=== PATIENT | male | born 2000 | race African-American/Black ===

== ENCOUNTER 2024-05-01 17:36 | Inpatient (IN) | payer OTHER, BC ==
[2024-05-01] MEDS ORDERED: MAGNESIUM HYDROXIDE 2,400 MG/30 ML CUP PO PRN (18:10)
[2024-05-01] MEDS ORDERED: ACETAMINOPHEN TAB 325 MG TAB PO PRN (18:10)
[2024-05-01] MEDS ORDERED: HALOPERIDOL LACTATE 5 MG/ML 1 ML VIAL IM PRN (18:10)
[2024-05-01] MEDS ORDERED: IBUPROFEN 600 MG TAB PO PRN (18:10)
[2024-05-01] MEDS ORDERED: LORazepam 2 MG/ML INJ IM PRN (18:10)
[2024-05-01] MEDS ORDERED: MAG HYDROX/AL HYDROX/SIMETH 355 ML BOTTLE PO PRN (18:10)
[2024-05-01] MEDS: LORazepam 1 MG TAB PO PRN (21:02)
[2024-05-01] MEDS: haloperidoL 5 MG TAB PO PRN (21:03)
[2024-05-01] MEDS: NICOTINE 21MG/24HR PATCH TRANSDERM SCH (21:38)
[2024-05-02 07:01] LABS: Basophils % (A) 0 %; Eosinophils # (A) 0.2 k/uL (0-0.7); Eosinophils % (A) 3 %; HCT 38.3 % (39.0-53.0); HGB 12.5 gm/dL (13.0-17.5); Lymphocytes # (A) 1.8 k/uL (1.0-4.8); Lymphocytes % (A) 30 %; MCH 25.3 pg (25.0-35.0); MCHC 32.5 g/dL (31.0-37.0); MCV 77.8 fL (80.0-100.0); Mean Platelet Volume 7.2; Monocytes # (A) 0.3 k/uL (0-1.0); Monocytes % (A) 5 %; Neutrophils # (A) 3.6 k/uL (1.3-7.7); Neutrophils % (A) 61 %; Platelet Count 228 k/uL (150-450); RBC 4.92 m/uL (4.30-5.90)
[2024-05-02 08:59] LABS: ALT 23 U/L (4-49); AST 42 U/L (17-59); African American GFR (CKD) >90 (>60 ml/min/1.73 sqM); Albumin 3.8 g/dL (3.5-5.0); Alkaline Phosphatase 84 U/L (38-126); Anion Gap 8 mmol/L; Bilirubin, Delta 0.1 mg/dL (0.0-0.2); Bilirubin,Unconjugated 0.3 mg/dL (0.0-1.1); Blood Urea Nitrogen 15 mg/dL (9-20); Calcium 9.5 mg/dL (8.4-10.2); Carbon Dioxide 24 mmol/L (22-30); Chloride 107 mmol/L (98-107); Glucose 100 mg/dL (74-99); Non-African American GFR(CKD) >90 (>60 ml/min/1.73 sqM); Potassium 3.8 mmol/L (3.5-5.1); Sodium 139 mmol/L (137-145); Total Bilirubin 0.4 mg/dL (0.2-1.3); Total Protein 6.4 g/dL (6.3-8.2)
[2024-05-02] MEDS ORDERED: NICOTINE 21MG/24HR PATCH TRANSDERM SCH (09:00)
--- NOTE | 2024-05-02 13:05 | P.HP ---
Psychiatric H&P - . H&P Date: 05/02/24 History & Physical: Allergies Allergy/AdvReac Type Severity Reaction Status Date / Time cheese Allergy Unknown Verified 05/01/24 18:09 Fish Containing Products Allergy Unknown Verified 05/01/24 18:09 Fish Penicillins Allergy Unknown Verified 05/01/24 18:09 Vital Signs Temp 98.5 F 05/01/24 21:03 Pulse 80 05/01/24 21:03 Resp 18 05/01/24 21:03 BP 134/81 05/01/24 21:03 Pulse Ox FiO2 Intake & Output 05/01/24 05/02/24 05/02/24 18:59 06:59 18:59 Weight 75 kg 71.441 kg Laboratory Last Values WBC 6.0 k/uL (3.8-10.6) 05/02/24 06:41 RBC 4.92 m/uL (4.30-5.90) 05/02/24 06:41 Hgb 12.5 gm/dL (13.0-17.5) L 05/02/24 06:41 Hct 38.3 % (39.0-53.0) L 05/02/24 06:41 MCV 77.8 fL (80.0-100.0) L 05/02/24 06:41 MCH 25.3 pg (25.0-35.0) 05/02/24 06:41 MCHC 32.5 g/dL (31.0-37.0) 05/02/24 06:41 RDW 14.0 % (11.5-15.5) 05/02/24 06:41 Plt Count 228 k/uL (150-450) 05/02/24 06:41 MPV 7.2 05/02/24 06:41 Neutrophils % 61 % 05/02/24 06:41 Lymphocytes % 30 % 05/02/24 06:41 Monocytes % 5 % 05/02/24 06:41 Eosinophils % 3 % 05/02/24 06:41 Basophils % 0 % 05/02/24 06:41 Neutrophils # 3.6 k/uL (1.3-7.7) 05/02/24 06:41 Lymphocytes # 1.8 k/uL (1.0-4.8) 05/02/24 06:41 Monocytes # 0.3 k/uL (0-1.0) 05/02/24 06:41 Eosinophils # 0.2 k/uL (0-0.7) 05/02/24 06:41 Basophils # 0.0 k/uL (0-0.2) 05/02/24 06:41 Sodium 139 mmol/L (137-145) 05/02/24 06:41 Potassium 3.8 mmol/L (3.5-5.1) 05/02/24 06:41 Chloride 107 mmol/L (98-107) 05/02/24 06:41 Carbon Dioxide 24 mmol/L (22-30) 05/02/24 06:41 Anion Gap 8 mmol/L 05/02/24 06:41 BUN 15 mg/dL (9-20) 05/02/24 06:41 Creatinine 1.06 mg/dL (0.66-1.25) 05/02/24 06:41 Est GFR (CKD-EPI)AfAm >90 (>60 ml/min/1.73 sqM) 05/02/24 06:41 Est GFR (CKD-EPI)NonAf >90 (>60 ml/min/1.73 sqM) 05/02/24 06:41 Glucose 100 mg/dL (74-99) H 05/02/24 06:[address] Glu mg/dL 105 mg/dL 05/02/24 06:41 Hemoglobin A1c 5.3 % (<=6.0) 05/02/24 06:41 Calcium 9.5 mg/dL (8.4-10.2) 05/02/24 06:41 Total Bilirubin 0.4 mg/dL (0.2-1.3) 05/02/24 06:41 Conjugated Bilirubin 0.0 mg/dL (0.0-0.3) 05/02/24 06:41 Unconjugated Bilirubin 0.3 mg/dL (0.0-1.1) 05/02/24 06:41 Delta Bilirubin 0.1 mg/dL (0.0-0.2) 05/02/24 06:41 AST 42 U/L (17-59) 05/02/24 06:41 ALT 23 U/L (4-49) 05/02/24 06:41 Alkaline Phosphatase 84 U/L (38-126) 05/02/24 06:41 Total Protein 6.4 g/dL (6.3-8.2) 05/02/24 06:41 Albumin 3.8 g/dL (3.5-5.0) 05/02/24 06:41 TSH 2.000 mIU/L (0.465-4.680) 05/02/24 06:41 05/02/24 12:54 IDENTIFYING DATA: Patient is a 23-year-old -Maced[place] male, unemployed and homeless CHIEF COMPLAINT: Psychosis HPI: 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 EPS note states, "Patient packet received from [facility] for transfer from [facility]. Patient has valid petition and clinical certificate stating patient has been responding to internal stimuli, extreme paranoia, and talking in word salad and incoherent speech. Patient reportedly has not been taking psychiatric medications, wandering and walking outside, and talking to "people that don't exist"." Patient seen and evaluated on the unit and was agreeable with speaking to field underwriter in office. Patient was disorganized and displaying pressured speech, responding internally at times. He states he has been eating plastic at home due to ongoing battles regarding entering the third dimension. He expresses numerous thoughts about and feels as though his mission is to eradicate all evil so that we all can experience the multi verse. He states due to him eating plastic, his brother kicked him out of his house and that he went to a friend's house and smoked from a vape pen that he feels was laced which caused him to start "freaking out" and so his mother was contacted who then called the police. Patient appears to be a proponent of cannabis, stating that it helps him fight cancer cells he asks field underwriter if there is something similar to cannabis that could be started however this was discouraged. Patient notably started speaking to God while talking to field underwriter. Patient denied any racing thoughts or sleep difficulties however petition did note patient has not been sleeping. He does express a history of time where he was not sleeping and felt very energetic with racing thoughts and states he has a history of bipolar disorder. Patient denies any suicidal or homicidal ideations intent or plan. At this time patient denies any visual hallucinations. Patient admits to using nicotine "on and off", alcohol "on and off" and cannabis often. PAST PSYCHIATRIC HISTORY: Patient has a history of bipolar disorder. Patient denies being on any psychiatric medications. He has tried Zyprexa in the past and found this helpful. He reports 3 previous inpatient hospitalizations, most recent being back in 2022. Patient denies any psychiatric outpatient follow-up. Patient denies any history of suicide attempts in the past. PMH: as per ER note ALLERGIES: as per EMR SUBSTANCE USE HISTORY: As per HPI FAMILY PSYCHIATRIC/SUBSTANCE USE HISTORY: He states his father has bipolar disorder and that depression runs in the family. He denied any substance abuse and family but states his uncle attempted suicide. SOCIAL HISTORY: Patient was recently staying with his brother in [place] however is currently homeless. He is unemployed. He completed high school. He has no children. MENTAL STATUS EXAM: General Appearance: Patient appears to be stated age is alert, directable, and attempts to cooperate. Patient appears to have fair hygiene and grooming. He has long dreadlocks Behavior: Patient is seated without any agitated behavior. Speech: Patient's speech is fluent and pressured Mood/Affect: Patient reports their mood is "good", affect is congruent and expansive Suicidality/Homicidality: Patient denies having any homicidal ideation intent or plan. Denies any suicidal ideations intent or plan Perceptions: Patient denies any visual hallucinations however reports auditory hallucinations, speaking directly to got during encounter Though content/process: There is evidence of grandiose and bizarre delusions expressed, illogical in nature disorganization Memory and concentration: AOX3, grossly intact for the purposes of this session. Can spell "WORLD" backwards Judgment and insight: Poor STRENGTHS/WEAKNESSES: strength is that patient is resilient, has family support. Weakness is that patient uses substances, has poor judgment and is impulsive INTELLECT: Average IMPRESSIONS: Psychosis unspecified Rule out schizoaffective disorder, bipolar type versus bipolar 1 disorder, current episode manic with psychotic features Cannabis use disorder Nicotine dependence PLAN: -Patient is admitted under voluntary status to MHU for stabilization of psychiatric symptoms and safety. Patient has signed adult voluntary form and medication consent and is placed in patient's chart. -Medications : Start Zyprexa 5 mg at bedtime for psychosis -Ativan and Haldol PRN for agitation/aggression -Patient was counselled on substance abuse and desired to cut back on use -Patient was informed of the risks, benefits and side effects of the medication and patient verbally consented to taking the medications. Patient signed med consent form and was placed in chart. -Internal Medicine consult to perform medical evaluation and physical. -NRT -nicotine patch nicotine gum as needed -SW on board for discharge planning. Encourage patient to participate in groups to work on coping skills.
[2024-05-02] MEDS: NICOTINE GUM (POLACRILEX) 2 MG GUM BUCCAL PRN (13:30)
[2024-05-02 17:59] LABS: Chol/HDL Ratio 2.04 Ratio; LDL Cholesterol,Calculated 42.2 mg/dL (0.0-131.0); VLDL Calculation 9.18 mg/dL (5.00-40.00)
--- NOTE | 2024-05-02 20:32 | P.MDCNMH ---
History of Present Illness H&P Date: 05/02/24 Patient is a 23-year-old male with history of bipolar disorder. Patient has a valid petition and clinical certificate stating patient has been responding to internal stimuli, extreme paranoia and talking and word salad and incoherent speech. Patient reports he has not been taking psychiatric medications, walking and wandering outside, and talking to "people that do not exist". Patient is a transfer from [facility] and is currently in the mental health unit. [facility] physicians consulted for medical management. Patient denies any chest pain, shortness of breath, abdominal pain, nausea, vomiting, urinary or bowel complaints. WBC 6.0, hemoglobin 12.5, hematocrit 38.3, MCV 77.8, platelets 228. Sodium 139, potassium 3.8, chloride 107, bicarb 24, BUN 15, creatinine 1.06, glucose 100. LFTs within normal limits. Lipid panel unremarkable. TSH was normal. Pertinent positives and negatives as discussed in HPI, a complete review of systems was performed and all other systems are negative. Patient seen and examined at bedside. Physical examination: Vital signs reviewed as temperature 97.9, heart rate 77, respiratory rate 16, blood pressure 116/92, O2 saturation 100% on room air General: nontoxic, no distress, appears at stated age Derm: warm, dry, intact Head: atraumatic, normocephalic, symmetric Eyes: anicteric sclera Mouth: no lip lesion, mucus membranes moist Cardiovascular: S1 S2 reg, no murmur Lungs: CTA bilateral, no rhonchi, no rales, no accessory muscle use Abdominal: soft, non-tender to palpation, nondistended Extremities: No cyanosis, clubbing, or pedal edema. Neuro: Alert, Oriented to person, time and place, Gross neurological examination did not reveal any focal deficits. Cranial nerves II to XII grossly intact. Bilateral upper and lower extremity muscle strength intact and sensation intact. Psych: well appearing, appropriate affect Assessment/Plan: Acute psychosis with history of bipolar disorder Management per primary team Patient will remain in MHU Microcytic anemia Follow-up iron studies CODE STATUS: Full code Patient has been deemed medically optimized. Thank you for this consultation. Past Medical History Past Medical History: No Reported History History of Any Multi-Drug Resistant Organisms: None Reported Past Surgical History: No Surgical Hx Reported Past Psychological History: No Psychological Hx Reported Smoking Status: Current some day smoker, Vaper Past Alcohol Use History: Occasional Past Drug Use History: None Reported Medications and Allergies Allergies Allergy/AdvReac Type Severity Reaction Status Date / Time cheese Allergy Unknown Verified 05/01/24 18:09 Fish Containing Products Allergy Unknown Verified 05/01/24 18:09 [Fish] Penicillins Allergy Unknown Verified 05/01/24 18:09 Physical Exam Vitals: Vital Signs Temp Pulse Resp BP Pulse Ox 05/02/24 13:31 97.9 F 77 16 116/92 100 05/01/24 21:03 98.5 F 80 18 134/81 Intake and Output 05/02/24 05/02/24 05/02/24 06:59 14:59 22:59 Other: Weight 71.441 kg Results CBC & Chem 7: 05/02/24 06:41 05/02/24 06:41 Labs: Abnormal Lab Results - Last 24 Hours (Table) 05/02/24 05/02/24 Range/Units 06:41 06:41 Hgb 12.5 L (13.0-17.5) gm/dL Hct 38.3 L (39.0-53.0) % MCV 77.8 L (80.0-100.0) fL Glucose 100 H (74-99) mg/dL
[2024-05-02] MEDS: OLANZapine 5 MG TAB PO SCH (20:53)
[2024-05-03] MEDS ORDERED: traZODone HCL 50 MG TAB PO PRN (11:19)
[2024-05-03] MEDS: ARIPiprazole 10 MG TAB PO SCH (11:56)
--- NOTE | 2024-05-03 12:19 | P.PN ---
Progress Note - Text Progress Note Date: 05/03/24 Interval History: Patient was seen in group and was directable and agreeable to speak with speech writer in the office. Patient notably appeared less disorganized however speech still pressured. He reports some concerns with his peer behaviors yesterday however states none has been bothering him. He reports sleeping well however reports excessive drowsiness with the Zyprexa and requests to be switched to a different medication that is not so drowsy so that he is able to function. Patient was ag reeable with trialing Abilify as this is also FDA approved for bipolar disorder. He states speaking to his mom and that he is agreeable with returning home with his brother in [place]. At this time patient denies any suicidal or homicidal ideations, intent or plan. Patient denies any auditory, visual hallucinations and denies any paranoia or delusions. Patient has been compliant with meds. Mental Status Exam: General Appearance: Patient appears to be stated age is alert, directable, and cooperative. He has dreadlocks and is dressed in home clothing with fair grooming and hygiene Behavior: Patient is calmly seated without any agitated behavior. Speech: Patient's speech is fluent and less pressured than previous encounter. Mood/Affect: Mood is improving mildly, affect is congruent and constricted. Suicidality/Homicidality: Patient denies having any suicidal or homicidal ideation intent or plan. Perceptions: Patient denies any visual hallucinations and denies any auditory hallucinations. He was not responding internally today Though content/process: Less disorganization and thoughts, less illogical thought content Memory and concentration: AOX3, grossly intact for the purposes of this session Judgment and insight: Improving mildly Assessment Bipolar 1 disorder, current episode manic with psychotic features Rule out substance-induced mood disorder Cannabis use disorder Nicotine dependence Plan: -Patient continues to meet criteria for inpatient psychiatric admission for symptom stabilization and safety. Patient has signed adult voluntary form and medication consent and was placed in patient's chart. -Medications: Change Zyprexa to Abilify 10 mg daily and start trazodone 50 mg as needed at bedtime for insomnia -When necessary Ativan and Haldol for agitation/aggression. -Labs: Reviewed -NRT -nicotine patch -SW on board for discharge planning. Encouraged the patient to participate in milieu. Anticipate discharge back home with brother on Thursday pending stability in manic symptoms and psychosis
[2024-05-03 16:45] LABS: % Iron Saturation 27.9 (15.00-50.00)
[2024-05-03] MEDS ORDERED: OLANZapine 10 MG TAB PO SCH (21:00)
[2024-05-04] MEDS: ARIPiprazole 5 MG TAB PO ONE (10:38)
--- NOTE | 2024-05-04 10:47 | P.PN ---
Progress Note - Text Progress Note Date: 05/04/24 Interval History: Patient was seen wandering the hallways and was directable and agreeable to sp mark with law writer in the office. Staff reported patient did not sleep at all last night to which patient states that this is due to him purposely trying to stay up. When asked for his reasonings for this, he states that he was trying to go home as he feels as though he is able to transport to another dimension by staying up at night. He feels as though he is able to go to sleep if he tries however was agreeable with starting melatonin tonight for sleep and if this is not effective we will start trazodone tomorrow. He reports overall feeling better today, reporting a boost in energy with discontinuing the Zyprexa. QUIROZ was discussed with the patient given his history of nonadherence and he appears contemplative on this but will be discussed further at a later time. At this time patient denies any suicidal or homicidal ideations, intent or plan. Patient denies any auditory, visual hallucinations and denies any paranoia. Patient denies any side effects from the medications and has been compliant with meds. Mental Status Exam: General Appearance: Patient appears to be stated age is alert, directable, and cooperative. He has dreadlocks, dressed at home close with fair grooming and hygiene Behavior: Patient is calmly seated without any agitated behavior. Intermittently tearful Speech: Patient's speech is fluent and talkative, less pressured previous encounters Mood/Affect: Mood is improving mildly, affect is congruent and labile at times. Suicidality/Homicidality: Patient denies having any suicidal or homicidal ideation intent or plan. Perceptions: Patient denies any visual hallucinations and denies any auditory hallucinations Though content/process: There is evidence of delusional thoughts expressed, slight disorganization however less than previous encounter Memory and concentration: AOX3, grossly intact for the purposes of this session Judgment and insight: Improving mildly Assessment Bipolar 1 disorder, current episode manic with psychotic features Rule out substance-induced mood disorder Cannabis use disorder Nicotine dependence Plan: -Patient continues to meet criteria for inpatient psychiatric admission for symptom stabilization and safety. Patient has signed adult voluntary form and medication consent and was placed in patient's chart. -Medications: Increase Abilify to 15 mg daily for bipolar disorder, start melatonin 10 mg at bedtime for insomnia, continue trazodone 50 mg as needed at bedtime for insomnia -When necessary Ativan and Haldol for agitation/aggression. -Labs: Reviewed -NRT -nicotine patch -SW on board for discharge planning. Encouraged the patient to participate in milieu. Anticipate discharge back home with brother either Thursday or Thursday pending stabilization in manic symptoms and psychosis
[2024-05-04] MEDS: MELATONIN 5 MG TABLET PO SCH (20:49)
[2024-05-05] MEDS: ARIPiprazole 15 MG TAB PO SCH (08:08)
--- NOTE | 2024-05-05 11:49 | P.PN ---
Progress Note - Text Progress Note Date: 05/05/24 Interval History: Patient was seen wandering the hallways and was directable and agreeable to sp mark with card writer hand in the office. Patient displayed delusional thoughts described as feeling energy from others and not wanting to suck energy from others. He reports feeling like he has been attacked from other dimensions and is reporting auditory hallucinations. He is now able to question these delusions, stating being unsure if they are real or not. He reports sleeping better however staff noted patient to be sleeping for just 1 hour thus trazodone will be started tonight for sleep in replacement of melatonin as patient reports nightmares from this. Patient was agreeable to transition to QUIROZ once Abilify is optimized. He request to be transferred to a different facility as he feels another peer energy is racist towards him although he has not expressed anything verbally. Patient was moved to the other hallway, from this peer. He was encouraged to talk to staff if any issues arise. At this time patient denies any suicidal or homicidal ideations, intent or plan. Patient denies any visual hallucinations. Patient denies any side effects from the medications and has been compliant with meds. Mental Status Exam: General Appearance: Patient appears to be stated age is alert, directable, and cooperative. He is dressed in home close and has dreadlocks Behavior: Patient is calmly seated without any agitated behavior. He is less tearful today Speech: Patient's speech is fluent and nonpressured, less talkative than previous encounter. Mood/Affect: Mood is "carley", affect is congruent and constricted. Suicidality/Homicidality: Patient denies having any suicidal or homicidal ideation intent or plan. Perceptions: Patient denies any visual hallucinations however reports auditory hallucinations Though content/process: There is evidence of bizarre delusional thoughts, slight disorganization that is less than previous encounters Memory and concentration: AOX3, grossly intact for the purposes of this session Judgment and insight: Improving mildly Assessment Bipolar 1 disorder, current episode manic with psychotic features Rule out substance-induced mood disorder Cannabis use disorder Nicotine dependence Plan: -Patient continues to meet criteria for inpatient psychiatric admission for symptom stabilization and safety. Patient has signed adult voluntary form and medication consent and was placed in patient's chart. -Medications: Increase Abilify to 20 mg daily for bipolar disorder, discontinue melatonin and start trazodone 50 mg at bedtime for insomnia -When necessary Ativan and Haldol for agitation/aggression. -Labs: Reviewed -NRT -nicotine patch -SW on board for discharge planning. Encouraged the patient to participate in milieu. Anticipate discharge back home with brother on Thursday
[2024-05-05] MEDS: traZODone HCL 50 MG TAB PO SCH (20:17)
[2024-05-06] MEDS ORDERED: ARIPiprazole 5 MG TAB PO SCH (09:00)
[2024-05-06] MEDS: ARIPiprazole 5 MG TAB PO ONE (09:17)
--- NOTE | 2024-05-06 13:06 | P.PN ---
Progress Note - Text Progress Note Date: 05/06/24 Interval History: Patient was seen wandering the hallways, responding internally and was directa ble and agreeable to speak with consumer loan underwriter in the office. He states he was speaking to his imaginary friend. He continues to display delusional thoughts, wearing a mask and reporting some nausea and dizziness which she felt was due to E. coli. He reports needing to stay awake at night in order to enter the other dimensions, stating his past ancestors were able to obtain this during slavery. He wishes to in D- take behaviors. He reports feeling erratic emotionally due to his inability to have superpowers. He was discouraged from not being as staff reported 1 sleep overnight. At this time patient denies any suicidal or homicidal ideations, intent or plan. Patient denies any side effects from the medications and has been compliant with meds. Mental Status Exam: General Appearance: Patient appears to be stated age is alert, directable, and cooperative. Dressed in home clothing with fair grooming and hygiene, has long dreadlocks Behavior: Patient is calmly seated without any agitated behavior. Speech: Patient's speech is fluent and nonpressured. Mood/Affect: Mood is improving mildly, affect is congruent and constricted. Suicidality/Homicidality: Patient denies having any suicidal or homicidal ideation intent or plan. Perceptions: Patient denies any visual hallucinations however he was seen responding internally in the bell Though content/process: There is evidence of delusional thoughts, disorganization Memory and concentration: AOX3, grossly intact for the purposes of this session Judgment and insight: Improving mildly Assessment Bipolar 1 disorder, current episode manic with psychotic features Rule out substance-induced mood disorder Cannabis use disorder Nicotine dependence Plan: -Patient continues to meet criteria for inpatient psychiatric admission for sym ptom stabilization and safety. Patient has signed adult voluntary form and medication consent and was placed in patient's chart. -Medications: Increase Abilify to 25 mg daily for bipolar disorder, start lithium 300 mg twice daily for mood stabilization, discontinue trazodone 50 mg and start Ambien 5 mg for insomnia -When necessary Ativan and Haldol for agitation/aggression. -Labs: TSH and creatinine within normal limits -NRT -nicotine patch -SW on board for discharge planning. Encouraged the patient to participate in milieu. Anticipate discharge early/mid next week 2 brothers pending stabili zation in manic symptoms and psychosis
[2024-05-06] MEDS: LITHIUM CARBONATE 300 MG CAP PO SCH (20:50)
[2024-05-06] MEDS: ZOLPIDEM 5 MG TAB PO SCH (20:50)
--- NOTE | 2024-05-07 08:25 | P.PN ---
Subjective Progress Note Date: 05/07/24 Principal diagnosis: bipolar 1 manic Patient was seen wandering the hallways, responding internally and was directable and agreeable to speak with casualty underwriter in the office. He states he was speaking to his imaginary friend. he says that the voices though are calmer and that when he took the lithium last night he just felt normal for the first time in years. He continues to display delusional thoughts, Mental Status Exam: General Appearance: Patient appears to be stated age is alert, directable, and cooperative. Dressed in home clothing with fair grooming and hygiene, has long dreadlocks Behavior: Patient is calmly seated without any agitated behavior. Speech: Patient's speech is fluent and nonpressuredbut racing and excess irrelevant detail Mood/Affect: Moodhe denies any depression or euphoria, affect is congruent and constricted. Suicidality/Homicidality: Patient denies having any suicidal or homicidal ideation intent or plan. Perceptions: Patient denies any visual hallucinations however he was seen responding internally in the hallto voices which she readily admits Though content/process: There is evidence of delusional thoughts, disorganization Memory and concentration: AOX3, grossly intact for the purposes of this session Judgment and insight: Improving mildly Assessment he seems to be getting better he's on Abilify 25 which is a good dose and is tolerating wellhe also started lithium and is tolerating that and likes its effect Bipolar 1 disorder, current episode manic with psychotic features Rule out substance-induced mood disorder Cannabis use disorder Nicotine dependence Plan:no change in medicine -Patient continues to meet criteria for inpatient psychiatric admission for symptom stabilization and safety. Patient has signed adult voluntary form and medication consent and was placed in patient's chart. -Medications: Increase Abilify to 25 mg daily for bipolar disorder, start lithium 300 mg twice daily for mood stabilization, discontinue trazodone 50 mg and start Ambien 5 mg for insomnia -When necessary Ativan and Haldol for agitation/aggression. -Labs: TSH and creatinine within normal limits -NRT -nicotine patch -SW on board for discharge planning. Encouraged the patient to participate in milieu. Anticipate discharge early/mid next week 2 brothers pending stabilization in manic symptoms and psychosis Objective - Vital Signs Vital signs: Vital Signs Temp 97.8 F 05/07/24 06:49 Pulse 77 05/07/24 06:49 Resp 16 05/07/24 06:49 BP 128/82 05/07/24 06:49 Pulse Ox 95 05/07/24 06:49 FiO2 - Labs CBC & Chem 7: 05/02/24 06:41 05/02/24 06:41
[2024-05-07] MEDS: ARIPiprazole 5 MG TAB PO SCH (08:34)
[2024-05-07] MEDS: ZOLPIDEM 5 MG TAB PO PRN (20:29)
--- NOTE | 2024-05-08 08:29 | P.PN ---
Subjective Progress Note Date: 05/08/24 Principal diagnosis: bipolar 1 manic Patient was seen on his way to breakfast but was creative and brought his tray and talked well. He says that the voices though are calmer. He continues to display delusional thoughts, with some flight of ideas and pressure of speech but seems calmer than even yesterday Mental Status Exam: General Appearance: Patient appears to be stated age is alert, directable, and cooperative. Dressed in home clothing with fair grooming and hygiene, has long dreadlocks Behavior: Patient is calmly seated without any agitated behavior. Speech: Patient's speech is fluent and nonpressuredbut racing and excess irrelevant detail Mood/Affect: Moodhe denies any depression or euphoria, affect is congruent and constricted. Suicidality/Homicidality: Patient denies having any suicidal or homicidal ideation intent or plan. Perceptions: Patient denies any visual hallucinations however he was seen responding internally in the hallto voices which she readily admits Though content/process: There is evidence of delusional thoughts, disorganization Memory and concentration: AOX3, grossly intact for the purposes of this session Judgment and insight: Improving mildly Assessment he seems to be getting better he's on Abilify 25 which is a good dose and is tolerating well. He also started lithium and is tolerating that and likes its effect Bipolar 1 disorder, current episode manic with psychotic features Rule out substance-induced mood disorder Cannabis use disorder Nicotine dependence Plan:no change in medicine -Patient continues to meet criteria for inpatient psychiatric admission for symptom stabilization and safety. Patient has signed adult voluntary form and medication consent and was placed in patient's chart. -Medications: Continue Abilify at 25 mg daily for bipolar disorder,continue lithium 300 mg twice daily for mood stabilization,Change Ambien 5 mg for insomnia to a when needed. -When necessary Ativan and Haldol for agitation/aggression. -Labs: TSH and creatinine within normal limits -NRT -nicotine patch -SW on board for discharge planning. Encouraged the patient to participate in milieu. Anticipate discharge early/mid next week 2 brothers pending stabilization in manic symptoms and psychosis Objective - Vital Signs Vital signs: Vital Signs Temp 98.1 F 05/08/24 06:40 Pulse 97 05/08/24 06:40 Resp 16 05/07/24 06:49 BP 130/89 05/08/24 06:40 Pulse Ox 99 05/08/24 06:40 FiO2 - Labs CBC & Chem 7: 05/02/24 06:41 05/02/24 06:41
[2024-05-08] MEDS: TEMAZEPAM 15 MG CAP PO SCH (20:21)
[2024-05-09] MEDS: ARIPiprazole 5 MG TAB PO ONE (13:12)
--- NOTE | 2024-05-09 13:25 | P.PN ---
Progress Note - Text Progress Note Date: 05/09/24 Interval History: Patient was seen wandering the hallways and was directable and agreeable to ana m flores with sports book writer in the office. Patient notably has been responding to internal stimuli however he states he sometimes talk out while. Patient states over the weekend hearing auditory hallucinations that led him to spit his medications out however he now has mild checks. He reports good sleep. He does report responding internally last night stating he felt as though a curse was put on him however God has a plan to put him back on the shayna plane. Spoke to patient's mother Vicki who states patient does appear more in control with his behaviors however she feels as though cannabis is a component to his current presentation. At this time patient denies any suicidal or homicidal ideations, intent or plan. Patient denies any side effects from the medications and has been compliant with meds. Mental Status Exam: General Appearance: Patient appears to be stated age is alert, directable, and cooperative. He has dreadlocks Behavior: Patient is calmly seated without any agitated behavior. Speech: Patient's speech is fluent and lightly pressured Mood/Affect: Mood is improving mildly, affect is congruent and constricted. Suicidality/Homicidality: Patient denies having any suicidal or homicidal ideation intent or plan. Perceptions: Patient denies any visual hallucinations and he denies any auditory hallucinations however was seen responding internally in the halls Though content/process: There is evidence of delusional thoughts, disorganization Memory and concentration: AOX3, grossly intact for the purposes of this session Judgment and insight: Improving mildly Assessment Bipolar 1 disorder, current episode manic with psychotic features Rule out substance-induced mood disorder Cannabis use disorder Nicotine dependence Plan: -Patient continues to meet criteria for inpatient psychiatric admission for symptom stabilization and safety. Patient has signed adult voluntary form and medication consent and was placed in patient's chart. -Medications: Increase Abilify to 30 mg daily today for bipolar disorder, start Zyprexa 10 mg at bedtime for psychosis, continue lithium 300 mg twice daily for mood stabilization (look at consolidating this tomorrow night to 900 mg ER) -When necessary Ativan and Haldol for agitation/aggression. -Labs: [place] level ordered for tomorrow -NRT -nicotine patch -SW on board for discharge planning. Encouraged the patient to participate in milieu. Dissipate discharge Wednesday/ pending stabilization in psychosis
[2024-05-09] MEDS: LITHIUM CARBONATE 300 MG CAP PO ONE (20:15)
[2024-05-09] MEDS: OLANZapine 10 MG TAB PO SCH (20:15)
[2024-05-09] MEDS ORDERED: TEMAZEPAM 15 MG CAP PO SCH (21:00)
[2024-05-10] MEDS: ARIPiprazole 15 MG TAB PO SCH (08:39)
[2024-05-10] MEDS: risperiDONE 1 MG TAB PO SCH (11:13)
--- NOTE | 2024-05-10 12:11 | P.PN ---
Progress Note - Text Progress Note Date: 05/10/24 Interval History: Patient was seen wandering the hallways and was directable and agreeable to sp mark with junior underwriter in the office. Patient continues to display psychosis, responding internally during interview. Patient expressed delusional thoughts described as demons casting a spell on him and how he killed Lucifer and put him in his body. Patient displays flight of ideas and paranoia, stating he feels as though he is being recorded. He reports auditory hallucinations described as hearing a boy that somewhat sounds like him. Patient required as needed Haldol/Ativan yesterday given his behaviors to which she states he was screaming and angry due to past issues with his brother and him not believing in demons. At this time patient denies any suicidal or homicidal ideations, intent or plan. Patient denies any side effects from the medications and has been compliant with meds. Mental Status Exam: General Appearance: Patient appears to be stated age is alert, directable, and cooperative. He has long dreadlocks Behavior: Patient is calmly seated without any agitated behavior. Speech: Patient's speech is fluent and nonpressured. Mood/Affect: Mood is improving mildly, affect is congruent and constricted. Suicidality/Homicidality: Patient denies having any suicidal or homicidal ideation intent or plan. Perceptions: Patient denies any visual hallucinations however he reports auditory hallucinations and was seen responding to internal stimuli during interview Though content/process: There is evidence of bizarre delusional thoughts, flight of ideas with paranoia Memory and concentration: AOX3, grossly intact for the purposes of this session Judgment and insight: poor Assessment Bipolar 1 disorder, current episode manic with psychotic features Rule out substance-induced mood disorder Cannabis use disorder Nicotine dependence Plan: -Patient continues to meet criteria for inpatient psychiatric admission for symptom stabilization and safety. Patient has signed adult voluntary form and medication consent and was placed in patient's chart. -Medications: Discontinue Abilify 30 mg and start Risperdal 1 mg twice daily for psychosis, continue Zyprexa 10 mg at bedtime for psychosis, increase and consolidate lithium to ER 900 mg at bedtime -When necessary Ativan and Haldol for agitation/aggression. -Labs: Reviewed -NRT -nicotine patch -SW on board for discharge planning. Encouraged the patient to participate in milieu.
[2024-05-10] MEDS: LITHIUM CARBONATE ER 450 MG TABLET.ER PO SCH (20:18)
[2024-05-11] MEDS: risperiDONE 1 MG TAB PO STA (10:53)
[2024-05-11] MEDS: LORATADINE 10 MG TAB PO PRN (11:34)
[2024-05-11 12:03] LABS: ALT 14 U/L (4-49); AST 20 U/L (17-59); African American GFR (CKD) >90 (>60 ml/min/1.73 sqM); Albumin 4.7 g/dL (3.5-5.0); Alkaline Phosphatase 86 U/L (38-126); Anion Gap 10 mmol/L; Blood Urea Nitrogen 13 mg/dL (9-20); Calcium 10.1 mg/dL (8.4-10.2); Carbon Dioxide 30 mmol/L (22-30); Chloride 100 mmol/L (98-107); Glucose 85 mg/dL (74-99); Non-African American GFR(CKD) >90 (>60 ml/min/1.73 sqM); Potassium 4.8 mmol/L (3.5-5.1); Sodium 140 mmol/L (137-145); Total Bilirubin 0.4 mg/dL (0.2-1.3); Total Protein 7.8 g/dL (6.3-8.2)
[2024-05-11] MEDS: LITHIUM CARBONATE ER 450 MG TABLET.ER PO SCH ×2 (12:15→12:16)
--- NOTE | 2024-05-11 13:16 | P.PN ---
Progress Note - Text Progress Note Date: 05/11/24 Interval History: Patient was seen wandering the hallways and was directable and agreeable to sp mark with telegraphic typewriter mechanic in the office. She reportedly slept poorly overnight. [place] level returned subtherapeutic at 0.3. He was seen responding to internal stimuli but did not require any as needed medications. He states screaming about evil being a concept and that this is what caused difficulties with sleep. He continues to express delusions described as keeping demons from his family. He exhibited flight of ideas with pressured speech. He states he wishes to be started on cannabis as this is helpful for sleep however this was strongly discouraged and he was encouraged to limit this use once discharged. At this time patient denies any suicidal or homicidal ideations, intent or plan. Patient denies any auditory, visual hallucinations. Patient denies any side effects from the medications and has been compliant with meds. Mental Status Exam: General Appearance: Patient appears to be stated age is alert, directable, and cooperative. He has dreadlocks with fair grooming and hygiene Behavior: Patient is calmly seated without any agitated behavior. Speech: Patient's speech is fluent but pressured. Mood/Affect: Mood is improving mildly, affect is congruent and constricted. Suicidality/Homicidality: Patient denies having any suicidal or homicidal ideation intent or plan. Perceptions: Patient denies any visual hallucinations and denies any auditory hallucinations Though content/process: There is evidence of bizarre delusional thoughts, flight of ideas, paranoia Memory and concentration: AOX3, grossly intact for the purposes of this session Judgment and insight: Improving mildly Assessment Bipolar 1 disorder, current episode manic with psychotic features Rule out substance-induced mood disorder Cannabis use disorder Nicotine dependence Plan: -Patient continues to meet criteria for inpatient psychiatric admission for symptom stabilization and safety. Patient has signed adult voluntary form and medication consent and was placed in patient's chart. -Medications: Increase Risperdal to 2 mg twice daily for psychosis, increase lithium ER to 1350 mg daily for mood stabilization, continue Zyprexa 10 mg at bedtime for psychosis, start Benadryl 50 mg at bedtime for insomnia -When necessary Ativan and Haldol for agitation/aggression. -Labs: [place] level 0.3 -NRT -nicotine patch -SW on board for discharge planning. Encouraged the patient to participate in milieu.
[2024-05-11] MEDS: risperiDONE 2 MG TAB PO SCH (20:15)
[2024-05-11] MEDS: diphenhydrAMINE 25 MG CAP PO SCH (20:15)
[2024-05-11] MEDS: OLANZapine 7.5 MG TAB PO SCH (20:20)
[2024-05-12] MEDS: LORATADINE 10 MG TAB PO PRN (10:34)
--- NOTE | 2024-05-12 12:14 | P.PN ---
Progress Note - Text Progress Note Date: 05/12/24 Interval History: Patient was seen wandering the hallways and was directable and agreeable to sp mark with typewriter tester in the office. Patient continues to display delusional thoughts however speech was notably less pressured. He was responding to internal stimuli during encounter however less than previous encounters. He mentions yesterday having to receive as needed medications due to him being angry related to delusional thoughts of dad telling him he has the freestyle for 24 hours. He was able to express remorse stating he was disrespectful towards staff. He expresses how he realizes he must speak to himself more internally than externally. He expresses an improvement with dry mouth and noted to have improved sleep with Benadryl. At this time patient denies any suicidal or homicidal ideations, intent or plan. Patient denies any auditory, visual hallucinations. Patient denies any side effects from the medications and has been compliant with meds. Mental Status Exam: General Appearance: Patient appears to be stated age is alert, directable, and cooperative. He has dreadlocks Behavior: Patient is calmly seated without any agitated behavior. Speech: Patient's speech is fluent and pressured but more interruptible Mood/Affect: Mood is improving mildly, affect is congruent and constricted. Suicidality/Homicidality: Patient denies having any suicidal or homicidal ideation intent or plan. Perceptions: Patient denies any visual hallucinations and denies any auditory hallucinations however he was seen responding to internal stimuli Though content/process: There is evidence of bizarre delusional thoughts, disorganization however more improved than previous encounters Memory and concentration: AOX3, grossly intact for the purposes of this session Judgment and insight: Improving mildly Assessment Bipolar 1 disorder, current episode manic with psychotic features Rule out substance-induced mood disorder Cannabis use disorder Nicotine dependence Plan: -Patient continues to meet criteria for inpatient psychiatric admission for symptom stabilization and safety. Patient has signed adult voluntary form and medication consent and was placed in patient's chart. -Medications: Increase Risperdal to 3 mg twice daily for psychosis, increase Benadryl to 100 mg at bedtime for insomnia/allergies and continue lithium ER 1350 mg daily for mood stabilization, Zyprexa 15 mg at bedtime for psychosis/sleep -When necessary Ativan and Haldol for agitation/aggression. -Labs: EKG ordered to be completed today -NRT -nicotine gum as needed -SW on board for discharge planning. Encouraged the patient to participate in milieu. Anticipate discharge early-mid next week pending stabilization in psychosis
[2024-05-12 15:30] VITALS: BMI 20.8
[2024-05-12] MEDS: risperiDONE 1 MG TAB PO SCH (21:09)
[2024-05-12] MEDS: diphenhydrAMINE 50 MG CAP PO SCH (21:09)
[2024-05-13] MEDS: guaiFENesin-DM 100-10MG/5ML 10 ML CUP PO PRN (02:41)
--- NOTE | 2024-05-13 12:16 | P.PN ---
Progress Note - Text Progress Note Date: 05/13/24 Interval History: Patient was seen wandering the hallways and was directable and agreeable to sp mark with film writer in the office. Patient received as needed Haldol overnight due to hearing noises. He states this was due to him having a nightmare about him dropping a baby over and over. Patient was less fixated on delusions today and less disorganized however still exhibited slightly pressured speech. He has been tending to his ADLs, slept 3 hours overnight. He states sleeping better. At this time patient denies any suicidal or homicidal ideations, intent or plan. Patient denies any auditory, visual hallucinations and denies any paranoia. Patient denies any side effects from the medications and has been compliant with meds. Mental Status Exam: General Appearance: Patient appears to be stated age is alert, directable, and cooperative. As dreadlocks Behavior: Patient is calmly seated without any agitated behavior. Speech: Patient's speech is fluent and slightly pressured Mood/Affect: Mood is improving mildly, affect is congruent and constricted. Suicidality/Homicidality: Patient denies having any suicidal or homicidal ideation intent or plan. Perceptions: Patient denies any visual hallucinations and denies any auditory hallucinations. He was not responding internally during encounter Though content/process: There is still slight disorganization however improved from previous encounter, less fixated on delusional thoughts Memory and concentration: AOX3, grossly intact for the purposes of this session Judgment and insight: Improving mildly Assessment Bipolar 1 disorder, current episode manic with psychotic features Rule out substance-induced mood disorder Cannabis use disorder Nicotine dependence Plan: -Patient continues to meet criteria for inpatient psychiatric admission for symptom stabilization and safety. Patient has signed adult voluntary form and me dication consent and was placed in patient's chart. -Medications: Increase Risperdal to 4 mg twice daily for psychosis, continue lithium ER 1350 mg daily for mood stabilization (will obtain another level on Thursday evening, Benadryl 100 mg at bedtime for insomnia/EPS, Zyprexa 15 mg at bedtime for psychosis -When necessary Ativan and Haldol for agitation/aggression. -Labs: Recent CMP WNL, EKG showed NSR, incomplete RBBB, QTc 443 -NRT -nicotine patch -SW on board for discharge planning. Encouraged the patient to participate in milieu. Anticipate discharge early-mid next week pending stabilization in psychosis
[2024-05-13] MEDS: risperiDONE 2 MG TAB PO SCH (20:51)
--- NOTE | 2024-05-14 11:16 | P.PN ---
Progress Note - Text Progress Note Date: 05/14/24 Interval history: Patient was seen wandering the hallways and was directable and agreeable to [place] with mortgage loan underwriter. Patient claims that he accidentally rubbed his eye today and it was a bit red. Claims that he is doing fine at this time. He was fairly calm and cooperative during the interview, states that he is doing well overall. He claims that he is still having "emotions" that he is talking to however clarifies that these are not "hallucinations". Feels that he is going to groups and participating, states that he slept on and off last night. At this time patient denies any suicidal or homicidal ideations intent or plan. Denies any Auditory or visual hallucinations. Patient denies any side effects from the medications and has been compliant with meds. Mental status exam: General Appearance: Patient appears to be stated age is alert, directable, and cooperative. Tall, has dreads Behavior: No agitated behavior. Patient is calm and directable Speech: Patient's speech is fluent and nonpressured. Mood/Affect: Mood is improving mildly, affect is congruent and constricted. Suicidality/Homicidality: Patient denies having any suicidal or homicidal ideation intent or plan. Perceptions: Patient denies any auditory or visual hallucinations. Though content/process: There is no evidence of any delusional thought content and thought process is linear and goal-directed. Memory and concentration: AOX3, grossly intact for the purposes of this session Judgment and insight: improving mildly Assessment/Plan: Continue with current diagnosis. Patient continues to meet criteria for inpatient psychiatric admission for symptom stabilization and safety. Patient will be maintained on current psychotropic medication regimen. Monitor for medication compliance and for any psychotropic medication side effects. Will continue to monitor ongoing response to treatment. Encouraged participation in milieu.
[2024-05-14] MEDS: ARTIFICIAL TEARS-HYPROMELLOSE DROPS 15 ML BTL LEFT EYE PRN (15:56)
[2024-05-15] MEDS: LITHIUM CARBONATE ER 450 MG TABLET.ER PO SCH (09:54)
--- NOTE | 2024-05-15 12:30 | P.PN ---
Progress Note - Text Progress Note Date: 05/15/24 Interval history: Patient was seen wandering the hallways, was seen later on participating in [employer]. He claims that his eyes doing a bit better, has been using the eyedrops. States that he is doing a bit better today. Continues to ramble at times, mildly illogical however was fairly pleasant cooperative. Not endorsing any delusions at this time, not endorsing any paranoia. States that he used to take melatonin and was asking if he could start that tonight. Claims that he slept on and off last night. Claims that he does take naps during the day. Her appetite. At this time patient denies any suicidal or homicidal ideations intent or plan. Denies any Auditory or visual hallucinations. Patient denies any side effects from the medications and has been compliant with meds. Mental status exam: General Appearance: Patient appears to be tall, thin, stated age is alert, directable, and cooperative, has dreads Behavior: No agitated behavior. Patient is calm and directable Speech: Patient's speech is fluent and nonpressured. Mood/Affect: Mood is improving mildly, affect is congruent and constricted. Suicidality/Homicidality: Patient denies having any suicidal or homicidal ideation intent or plan. Perceptions: Patient denies any auditory or visual hallucinations. Though content/process: There is no evidence of any delusional thought content and thought process is linear and goal-directed. rambles at times Memory and concentration: AOX3, grossly intact for the purposes of this session Judgment and insight: poor, improving mildly Assessment/Plan: Continue with current diagnosis. Patient continues to meet criteria for inpatient psychiatric admission for symptom stabilization and safety. Patient will be maintained on current psychotropic medication regimen. added melatonin 5 mg qhs for sleep. Monitor for medication compliance and for any psychotropic medication side effects. Will continue to monitor ongoing response to treatment. Encouraged participation in milieu.
[2024-05-15] MEDS: MELATONIN 5 MG TABLET PO SCH (20:01)
[2024-05-16 07:20] VITALS: BP 130/88; PULSE 109; RESP 16; TEMP 98.4
[2024-05-16] MEDS: FLUTICASONE NASAL 50MCG/SPRAY 16GM BTL EA NOSTRIL PRN (10:45)
--- NOTE | 2024-05-16 13:38 | P.DS ---
Providers Date of admission: 05/01/24 20:39 Expected date of discharge: 05/16/24 Attending physician: Caitlyn Elise MD Consults: 05/01/24 18:10 Consult Physician Routine Consulting Provider: Earl Lawler Consult Reason/Comments: History and Physical, New Admission Do you want consulting provider notified?: Yes Primary care physician: Stated None - Discharge Diagnosis(es) (1) Bipolar I disorder, most recent episode manic, severe with psychotic features Current Visit: Yes Status: Acute Priority: High (2) Cannabis use disorder Current Visit: Yes Status: Acute Priority: Medium (3) Nicotine dependence Current Visit: Yes Status: Acute Priority: Low Hospital Course: Admission HPI: Admission note was completed by administrative underwriter "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 EPS note states, "Patient packet received from [facility] for transfer from [facility]. Patient has valid petition and clinical certificate stating patient has been responding to internal stimuli, extreme paranoia, and talking in word salad and incoherent speech. Patient reportedly has not been taking psychiatric medications, wandering and walking outside, and talking to "people that don't exist"." Patient seen and evaluated on the unit and was agreeable with speaking to administrative underwriter in office. Patient was disorganized and displaying pressured speech, responding internally at times. He states he has been eating plastic at home due to ongoing battles regarding entering the third dimension. He expresses numerous thoughts about and feels as though his mission is to eradicate all evil so that we all can experience the multi verse. He states due to him eating plastic, his brother kicked him out of his house and that he went to a friend's house and smoked from a vape pen that he feels was laced which caused him to start "freaking out" and so his mother was contacted who then called the police. Patient appears to be a proponent of cannabis, stating that it helps him fight cancer cells he asks administrative underwriter if there is something similar to cannabis that could be started however this was discouraged. Patient notably started speaking to God while talking to administrative underwriter. Patient denied any racing thoughts or sleep difficulties however petition did note patient has not been sleeping. He does express a history of time where he was not sleeping and felt very energetic with racing thoughts and states he has a history of bipolar disorder. Patient denies any suicidal or homicidal ideations intent or plan. At this time patient denies any visual hallucinations. Patient admits to using nicotine "on and off", alcohol "on and off" and cannabis often." Hospital course: Upon admission to the unit patient was directable and agreeable to commence treatment and signed adult voluntary form.. Patient got along well with other patients on the unit and followed unit protocol. Patient was compliant with the medications and denied any side effects throughout hospital course. Patient was started on Abilify and this was increased to 30 mg daily however this was discontinued and he was switched to Risperdal increased to 4 mg twice daily for psychosis with better effect. Patient was also started on Zyprexa increased to 50 mg at bedtime for psychosis, lithium ER increased to 1350 mg daily for mood stabilization (li level in 05/15 was 0.9), Benadryl increased to 100 mg at bedtime for insomnia, melatonin 5 mg at bedtime for insomnia. Patient spoke of his stressors and engaged in therapy both group and individual. Patient was also seen by medical team for history and physical exam. Throughout the course of the hospitalization patient gradually improved with regards to mood, anxiety, sleep and returned back to their baseline level of functioning. On the day of discharge patient denied any suicidal or homicidal ideations intent or plan denied any auditory or visual hallucinations. The patient denied any access to guns or weapons. Patient denied any paranoia and did not endorse any delusions. Patient does not have a significant history of substance abuse and was counseled on abstaining from all substances including alcohol and marijuana. Patient was also counseled on the medications and need for regular compliance and was encouraged to follow-up with their outpatient appointment for mental health and also for primary care. Prior to discharge a family meeting will be arranged by social services to answer any questions and ensure safety upon disch arge incuding making sure that guns/weapons are either removed from the home or locked away. Patient to be discharged back home with mother/brother with [facility] follow-up Mental status exam: General Appearance: Patient appears to be stated age is alert, pleasant, and cooperative. Patient is in no acute distress and has improved hygiene and grooming. He has dreadlocks Behavior: Patient is calmly seated without any agitated behavior. Speech: Patient's speech is fluent and nonpressured. Mood/Affect: Patient reports their mood is "good", affect is congruent and euthymic. Suicidality/Homicidality: Patient denies having any suicidal or homicidal ideation intent or plan. Perceptions: Patient denies any auditory or visual hallucinations. Though content/process: There is no evidence of any delusional thought content and thought process is linear and goal-directed. Memory and concentration: AOX3, grossly intact for the purposes of this session. Can spell "WORLD" backwards correctly. Judgment and insight: Fair Impression: Bipolar 1 disorder, current episode manic with psychotic features Rule out substance-induced mood disorder Cannabis use disorder Nicotine dependence Plan: -Continue with discharge today as patient has improved and stabilized psychiatrically and is not currently an imminent threat to themself and/or others. -Continue medications: Risperdal 4 mg twice daily, lithium ER 1350 mg daily, Benadryl 100 mg at bedtime, Zyprexa 15 mg at bedtime, melatonin 5 mg at bedtime -Patient was counseled on the need for medication compliance and appropriate fol low-up at mental health and also primary care for medical issues. Patient verbalized understanding and agreed. -Social work to help coordinate patients discharge today arrange for and conduct family meeting to ensure safety upon discharge and answer any questions/concerns. also to ensure safe home environment that guns/weapons are either removed from the home or locked away. Social work also to arrange for patients follow up appointments with [facility] for psychiatric care along with follow up with primary care provider. -Patient counseled on abstaining from recreational drugs and marijuana and alcohol. Was informed/educated on the adverse effects on their physical and mental health. Patient verbally agreed and understood. -Patient was instructed to return to the hospital or seek immediate medical care if their psychiatric or medical symptoms do worsen or reoccur. Abnormal Labs 05/02/24 05/02/24 06:41 06:41 Hgb 12.5 L Hct 38.3 L MCV 77.8 L Glucose 100 H Vital Signs Temp 98.4 F 05/16/24 06:14 Pulse 109 H 05/16/24 06:14 Resp 16 05/16/24 06:14 BP 130/88 05/16/24 06:14 Pulse Ox 97 05/16/24 06:14 FiO2 Intake & Output 05/15/24 05/16/24 05/16/24 18:59 06:59 18:59 Weight 74.661 kg Allergies Allergy/AdvReac Type Severity Reaction Status Date / Time cheese Allergy Unknown Verified 05/01/24 18:09 Fish Containing Products Allergy Unknown Verified 05/01/24 18:09 [Fish] Penicillins Allergy Unknown Verified 05/01/24 18:09 Patient Condition at Discharge: Stable Plan - Discharge Summary New Discharge Prescriptions: New Artificial Tears-Hypromellose [Artificial Tear Drops] 2 drops LEFT EYE TID PRN ml PRN Reason: Dry Eye(S) risperiDONE [RisperDAL] 4 mg PO BID 30 Days #120 tab OLANZapine [ZyPREXA] 15 mg PO HS 30 Days #60 tab diphenhydrAMINE [Benadryl] 100 mg PO HS 30 Days #60 cap Loratadine [Claritin] 10 mg PO Q12HR PRN 30 Days #60 tab PRN Reason: Allergy Symptoms Ririe Carbonate ER [Lithobid] 1,350 mg PO DAILY 30 Days #90 tab Melatonin 5 mg PO HS 30 Days #30 tab Nicotine Gum (Polacrilex) [Nicorette] 2 mg BUCCAL Q4HR PRN pieceofgum PRN Reason: Nicotine Cravings guaiFENesin-DM 100-10MG/5ML [Robitussin DM] 10 ml PO Q6HR PRN ml PRN Reason: Cough Discharge Medication List Artificial Tears-Hypromellose [Artificial Tear Drops] 2 drops LEFT EYE TID PRN ml 05/16/24 [Rx] Ririe Carbonate ER [Lithobid] 1,350 mg PO DAILY 30 Days #90 tab 05/16/24 [Rx] Loratadine [Claritin] 10 mg PO Q12HR PRN 30 Days #60 tab 05/16/24 [Rx] Melatonin 5 mg PO HS 30 Days #30 tab 05/16/24 [Rx] Nicotine Gum (Polacrilex) [Nicorette] 2 mg BUCCAL Q4HR PRN pieceofgum 05/16/24 [Rx] OLANZapine [ZyPREXA] 15 mg PO HS 30 Days #60 tab 05/16/24 [Rx] diphenhydrAMINE [Benadryl] 100 mg PO HS 30 Days #60 cap 05/16/24 [Rx] guaiFENesin-DM 100-10MG/5ML [Robitussin DM] 10 ml PO Q6HR PRN ml 05/16/24 [Rx] risperiDONE [RisperDAL] 4 mg PO BID 30 Days #120 tab 05/16/24 [Rx] Follow up Appointment(s)/Referral(s): [facility] [Other] - 05/19/24 1:00 pm Health department, [facility] [Other] - [facility] Week [facility] [NON-STAFF] - 05/16/24 () Patient Instructions/Handouts: How to Stop Smoking (DC), Bipolar Disorder (DC) Activity/Diet/Wound Care/Special Instructions: [facility] Discharge Info Avoid the use of street drugs and alcohol. Take all medications as prescribed. When you are in need of refills on your medications, please contact your outpatient medical provider and/or outpatient psychiatrist. Please go to your scheduled outpatient appointments for aftercare treatment. If symptoms return or become worse, call the crisis line at or and/or visit the nearest emergency room for assistance. National Suicide and Crisis Lifeline - call or text 434 Discharge/Stand Alone Forms: AA Meetings [place] Discharge Disposition: HOME SELF-CARE
== END 2024-05-16 18:35 | disposition home or self-care (01) | DRG 885 ==
LOC: 3MHU 20:39
PROVIDERS: ADMIT Psychiatry & Neurology Psychiatry; ATTEND Psychiatry & Neurology Psychiatry
DX: F31.2 Bipolar disorder, current episode manic severe with psychotic features (principal); R45.851 Suicidal ideations; Z59.00 Homelessness unspecified; F12.10 Cannabis abuse, uncomplicated; D50.9 Iron deficiency anemia, unspecified; B96.20 Unspecified Escherichia coli [E. coli] as the cause of diseases classified elsewhere; F41.9 Anxiety disorder, unspecified; F51.5 Nightmare disorder; G47.00 Insomnia, unspecified; Z56.0 Unemployment, unspecified; Z79.899 Other long term (current) drug therapy; Z88.0 Allergy status to penicillin; Z91.013 Allergy to seafood; Z71.6 Tobacco abuse counseling; Z71.51 Drug abuse counseling and surveillance of drug abuser; Z81.8 Family history of other mental and behavioral disorders
CPT/HCPCS: 80053; 80061; 80178; 82248; 82728; 83036; 83540; 83550; 84443; 84466; 85025; 93005